=== PATIENT | male | born 1970 | race Caucasian/White ===

== ENCOUNTER 2020-03-13 18:26 | Emergency (ER) | payer OTHER ==
[~2020-03-13] VITALS: Ht 167.6 cm; Wt 90.7 kg
[~2020-03-13 18:26] MED LIST: CYCL10 PO; Naprosyn500 MG PO; Norco 5-325 Ta1 EACH PO; Prednisone20 MG PO; Vistaril50 MG PO
[2020-03-14] MEDS ORDERED: PRED20 PO (11:43)
== END 2020-03-13 20:12 | disposition home or self-care (01) ==
LOC: ER 18:26
DX: L25.9 Unspecified contact dermatitis, unspecified cause (principal)
CPT/HCPCS: 96372; 99282-25; J3301

== ENCOUNTER 2020-03-14 09:35 | Emergency (ER) | payer OTHER ==
[~2020-03-14] VITALS: Ht 167.6 cm; Wt 90.7 kg
[2020-03-14] MEDS ORDERED: PRED20 PO (11:43)
== END 2020-03-14 11:56 | disposition home or self-care (01) ==
LOC: ER 09:35
DX: L23.7 Allergic contact dermatitis due to plants, except food (principal)
CPT/HCPCS: 99283; J7512

== ENCOUNTER 2020-10-18 16:56 | Emergency (ER) | payer OTHER ==
[~2020-10-18] VITALS: Ht 167.6 cm; Wt 86.2 kg
[~2020-10-18 16:56] MED LIST changes: +PRED20 PO
[2020-10-18] MEDS ORDERED: Cetirizine HCl10 MG PO (17:20)
[2020-10-18 17:42] LABS: BASOPHILS PERCENT AUTO 1 % (0-2); EOSINOPHILS ABSOLUTE AUTO 0.21 K/mm3 (0.00-0.68); EOSINOPHILS PERCENT AUTO 2 % (0-6); Hematocrit 39.9 % (37.0-53.0); Hemoglobin 13.1 g/dL (13.5-17.5); IMMATURE GRAN ABSOLUTE AUTO 0.05 K/mm3 (0.00-0.10); IMMATURE GRAN PERCENT AUTO 1 % (0-1); LYMPHOCYTES PERCENT AUTO 24 % (21-46); MONOCYTES ABSOLUTE AUTO 0.66 K/mm3 (0.16-1.47); MONOCYTES PERCENT AUTO 6 % (4-13); Mean Corpuscular HGB 27.6 pg (26.0-34.0); Mean Corpuscular HGB Conc 32.8 g/dL (31.5-36.5); Mean Corpuscular Volume 84 fL (80-100); Mean Platelet Volume 8.4 fL (9.1-12.4); NEUTROPHILS ABSOLUTE AUTO 7.32 K/mm3 (1.96-9.15); NEUTROPHILS PERCENT AUTO 67 % (41-73); Platelet Count 126 K/mm3 (150-400); RDW Coefficient Variation 13.7 % (11.7-14.2); RDW Standard Deviation 42.4 fL (35.1-46.3); Red Blood Cell Count 4.74 M/mm3 (4.30-5.90); White Blood Cell Count 10.94 K/mm3 (4.00-11.30)
[2020-10-18 17:55] LABS: Prothrombin Time Results 10.8 Sec (9.7-11.5)
[2020-10-18 18:11] LABS: Alanine Aminotransfer (ALT/SGP 25 U/L (12-78); Albumin, Blood 2.9 g/dL (3.4-5.0); Albumin/Globulin Ratio 0.4 (0.8-1.8); Alk Phos 45 U/L (50-136); Anion Gap 3 mmol/L (6-16); Aspartate Aminotrans (AST/SGOT 13 U/L (12-37); Bilirubin, Total 0.3 mg/dL (0.1-1.0); Blood Urea Nitrogen 22 mg/dL (8-24); Bun/Creatinine Ratio 20.2 (12.0-20.0); CO2, Blood 24 mmol/L (21-32); Calcium, Blood 8.9 mg/dL (8.5-10.1); Chloride, Blood 110 mmol/L (98-108); Creatinine, Blood 1.09 mg/dL (0.60-1.20); Globulin, Blood 7.2 g/dL (2.2-4.0); Glomerular Filtration Rate >60 (60-); Glucose, Blood 97 mg/dL (70-99); Potassium, Blood 4.1 mmol/L (3.5-5.5); Sodium, Blood 137 mmol/L (136-145); Total Protein, Blood 10.1 g/dL (6.4-8.2)
== END 2020-10-18 18:45 | disposition home or self-care (01) ==
LOC: ER 16:56
PROVIDERS: Emergency Medicine Emergency Medical Services
DX: R04.0 Epistaxis (principal); Z88.8 Allergy status to other drugs, medicaments and biological substances
CPT/HCPCS: 36415; 80053; 85025; 85610; 85730; 99283; A9270

== ENCOUNTER 2020-12-02 08:20 | Emergency (ER) | payer OTHER ==
[~2020-12-02] VITALS: Ht 167.6 cm; Wt 90.7 kg
[~2020-12-02 08:20] MED LIST changes: +Cetirizine HCl10 MG PO
[2020-12-02] MEDS ORDERED: Prednisone20 MG PO (09:32)
== END 2020-12-02 09:43 | disposition home or self-care (01) ==
LOC: ER 08:20
DX: L25.9 Unspecified contact dermatitis, unspecified cause (principal); Z91.048 Other nonmedicinal substance allergy status
CPT/HCPCS: 99282

== ENCOUNTER → 2022-10-05 | Outpatient (CLI) | payer OTHER ==
[2022-10-05 17:12] LABS: Source, Urine Voided
[2022-10-05 17:57] LABS: Appearance, Urine Clear (Clear); Bilirubin, Urine Neg (Neg); Blood, Urine 1+ (Neg); Color, Urine Yellow (P-Yellow); Glucose Qualitative, Urine Neg (Neg); Ketones, Urine Neg (Neg); Leukocyte Esterase, Urine Neg (Neg); Nitrite, Urine Neg (Neg); Protein, Urine 1+ (Neg); Specific Gravity, Urine 1.015 (1.003-1.022); Urobilinogen, Urine NORM (Normal)
[2022-10-05 18:05] LABS: Bacteria Rare /hpf; Red Blood Cells, Urine 0-2 /hpf (0-2); Squamous Epithelial Cells Not Seen /hpf (Few); White Blood Cells, Urine 0-2 /hpf (0-5)
== END ==
LOC: LAB SHORT 17:09
PROVIDERS: Family Medicine
DX: R31.9 Hematuria, unspecified (principal)
CPT/HCPCS: 81001

== ENCOUNTER 2023-08-23 11:08 | Emergency (ER) | payer OTHER ==
[~2023-08-23] VITALS: Ht 167.6 cm; Wt 83.9 kg
[2023-08-23 11:44] VITALS: BP 129/91
== END 2023-08-23 13:25 | disposition home or self-care (01) ==
LOC: ER 11:08
DX: R04.0 Epistaxis (principal); Z79.52 Long term (current) use of systemic steroids; Z79.899 Other long term (current) drug therapy; Z91.048 Other nonmedicinal substance allergy status
CPT/HCPCS: 99283